=== PATIENT | male | born 1965 | race Caucasian/White ===

== ENCOUNTER 2020-01-25 16:02 | Outpatient (CLI) | payer OTHER | END 2020-01-25 16:03 | disposition home or self-care (01) | LOC: COV 16:02 | PROVIDERS: ATTEND Family Medicine | DX: R50.9 Fever, unspecified (principal); M79.10 Myalgia, unspecified site; R53.83 Other fatigue; Z20.828 Contact with and (suspected) exposure to other viral communicable diseases ==